=== PATIENT | female | born 1960 | race Caucasian/White ===

== ENCOUNTER 2020-10-19 23:53 | Emergency (ER) | payer BC ==
[2020-10-20 00:45] LABS: Hemoglobin 11.9 g/dL (12.0-16.0); Mean Corpuscular Hemoglobin 32.7 pg (27.0-31.0); RBC Distribution Width 14.7 % (11.5-14.5); Red Blood Cell (RBC) Count 3.65 mill/uL (4.20-5.40); White Blood Cell (WBC) Count 13.5 thou/uL (4.8-10.8)
[2020-10-20 00:46] LABS: #Basophils 0.1 thou/uL (0.0-0.2); #Eosinphils 0.2 thou/uL (0.0-0.7); #Lymphocytes 1.5 thou/uL (1.20-3.40); #Monocytes 0.7 thou/uL (0.11-0.59); %Basophils 0.7 % (0.0-1.0); %Eosinophils 1.5 % (0.0-10.0); %Lymphocytes 10.9 % (21.0-51.0); %Monocytes 5.5 % (0.0-10.0); %Neutrophils 81.3 % (42.0-75.0); Manual Diff?? NO; Mean Platelet Volume 7.6 fL (7.4-10.4); Platelet Count 240 thou/uL (130-400)
[2020-10-20 00:52] LABS: ALT (SGPT) 100 U/L (8-55); AST (SGOT) 16 U/L (5-34); Albumin 3.3 g/dL (3.4-4.8); Alkaline Phosphatase 151 U/L (40-110); Anion Gap 18 mmol/L (10-20); BUN (Urea Nitrogen) 22 mg/dL (9.8-20.1); Bilirubin, Total 0.8 mg/dL (0.2-1.2); Calc. Creatinine Clearance 0 mL/min (70-130); Calcium 10.1 mg/dL (7.8-10.44); Carbon Dioxide 27 mmol/L (23-31); Chloride 104 mmol/L (98-107); Globulin 3.5 g/dL (2.4-3.5); Glucose 222 mg/dL (80-115); Potassium 3.5 mmol/L (3.5-5.1); Protein, Total 6.8 g/dL (6.0-8.3); Sodium 145 mmol/L (136-145)
[2020-10-20 01:14] LABS: CKMB 2.9 ng/mL (0-6.6)
--- NOTE | 2020-10-20 10:23 | RAD ---
CHEST 1 VIEW: Date: 10/20/2020 INDICATION: History of dyspnea. COMPARISON: Prior exam dated 10/14/2020. IMPRESSION: Bilateral air space disease persists. Tracheostomy tube is unchanged. There is improvement in the lef t torso subcutaneous emphysema. Osseous structures unchanged. POS: BH
== END 2020-10-20 00:57 | disposition short-term general hospital (02) ==
LOC: NAV ERS 23:53
DX: U07.1 COVID-19 (principal); R06.03 Acute respiratory distress; I10 Essential (primary) hypertension; Z85.43 Personal history of malignant neoplasm of ovary; Z79.899 Other long term (current) drug therapy
CPT/HCPCS: 71045; 80053; 82553; 84484; 85025; 93005